=== PATIENT | male | born 1955 | race Caucasian/White ===

== ENCOUNTER → 2019-05-07 09:23 | Outpatient (BNVA) | payer BC, SELFPAY | PROVIDERS: Family Provider Family Medicine; Referring Provider Family Medicine; Visit Provider Specialist | DX: M25.562 Pain in left knee (principal); M17.12 Unilateral primary osteoarthritis, left knee | CPT/HCPCS: 73560; 73565 ==

== ENCOUNTER 2019-05-14 13:26 | Outpatient (CLI) | payer BC, SELFPAY ==
--- NOTE | 2019-05-14 13:45 | MR_ITS ---
WS: [id number] MRI LEFT KNEE NONCONTRAST TECHNIQUE: Axial PD, coronal PD fat sat, coronal PD, sagittal PD, and sagittal PD fat-sat images obta ined. CLINICAL INFORMATION: pain COMPARISON: None. FINDINGS: Distal quadriceps and patella tendons are intact. Normal anterior cruciate ligament. Normal PCL. Smal l amount of prepatellar and infrapatellar soft tissue edema. Blunting of the posterior horn medial meniscus likely due to prior partial meniscectomy. Chronic thin kina of the medial and lateral meniscus. No acute appearing lateral meniscal tears. 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 Medial and lateral collateral lig aments are intact. 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 Normal popliteal fossa. MR/MR knee LT wo con* [id number] IMPRESSION: 1. Anterior and posterior cruciate ligaments are intact. 2. Evidence of prior partial meniscectomy posterior horn medial meniscus. 3. 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 4. 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
== END 2019-05-14 13:27 | disposition home or self-care (01) ==
LOC: RADSHAW 13:30
PROVIDERS: Family Provider Family Medicine; PCP Family Medicine; Visit Provider Specialist
DX: M25.562 Pain in left knee (principal); M22.42 Chondromalacia patellae, left knee
CPT/HCPCS: 73721

== ENCOUNTER 2020-04-08 08:33 | Outpatient (CLI) | payer BC, SELFPAY ==
--- NOTE | 2020-04-08 08:43 | XR_ITS ---
WS: [id number] Left wrist, 3 views, 04/08/2020 Clinical Data: LEFT WRIST PAIN Comparison: None. Findings: No fractures or dislocations are seen. The carpal bones are intact. There is no soft tissue swelling. The distal radius and ulna are not remarkable. XR/XR wrist LT min 3V* [id number] Impression: Negative left wrist.
== END 2020-04-08 08:34 | disposition home or self-care (01) ==
LOC: RAD 08:40
PROVIDERS: Family Provider Family Medicine; PCP Family Medicine; Visit Provider Family Medicine
DX: M25.532 Pain in left wrist (principal)
CPT/HCPCS: 73110

== ENCOUNTER 2021-02-18 12:25 | Emergency (ER) | payer MEDICARE, BC, SELFPAY ==
[2021-02-18 12:39] VITALS: BP 160/91; PULSE 68; RESP 18; TEMP 36.6; O2SAT 95; BMI 33.5
--- NOTE | 2021-02-18 12:48 | XR_ITS ---
WS: [id number] PORTABLE CHEST HISTORY: palpitations COMPARISON: 01/02/2011 Lungs are clear and well expanded. No pleural effusion or pneumothorax. Cardiac size: Normal. Mediastinum/Aorta: Normal mediastinum. No osseous abnormality seen. XR/XR chest 1V portable [id number] IMPRESSION: Unremarkable portable chest.
--- NOTE | 2021-02-18 12:48 | ECG_ITS ---
[facility] Test Date: 2021-02-18 Pat Name: Marcus Kasper Department: Room: Gender: Male Gas Operation Manager: : 1955 Requested By: Cookie Gilbert Order Number: [id number] Reading MD: ROJAS STOREY Measurements Intervals [place] Rate: 68 P: 23 MO: 153 QRS: -64 QRSD: 102 T: 47 QT: 356 QTc: 381 Interpretive Statements SINUS RHYTHM LEFT AXIS DEVIATION [QRS AXIS < -30] POSSIBLE ANTERIOR MYOCARDIAL INFARCTION , OF INDETERMINATE AGE [30 ms Q WAVE IN V3/V4, OR R < 0.2 mV IN V4] No previous ECG available for comparison Electronically Signed On 02-18-2021 14:28:53 CAR PILOT by ROJAS STOREY [id number]
--- NOTE | 2021-02-18 14:27 | ED_ITS ---
HPI - Arrhythmia/Palpitations General: Chief Complaint: Arrhythmia/Palpitations Stated Complaint: HEART SKIPPING BEATS Time Seen by Provider: 02/18/21 14:27 History of Present Illness: HPI narrative: Mr. Kasper is a 65-year-old gentleman with significant history of hemochromatosis who presents to the emergency department due to palpitations. He first noticed intermittent palpitations approximately 1 month ago however they have been increasing in frequency gradually. He notices them more at night and describes it as his heart skipping a beat like 2 or 3 beats followed by long pauses. He denies specific provoking factors. He did have one episode where 3 happened neuro when he felt mildly lightheaded, no syncope associated with this. He has felt his pulse on the positives have been noticeable. Overall the intensity symptoms is moderate at present, there is no associated pain. Course has been increasing in frequency/worsening. He denies heart history, hypertension, hyperlipidemia, tobaccoism, or frequent similar episodes in the past. No other known specific provoking, exacerbating, or alleviating factors identified. Review of Systems General: Reports: 10 or more systems reviewed and unremarkable except in HPI and below PFSH ED PFSH: Family History Father Stroke Denies family history of Diabetes Dementia Cancer Social History Smoking and tobacco status: never smoked Alcohol intake: never Physical Exam Narrative: EXAM NARRATIVE: GENERAL/CONSTITUTIONAL - well-appearing. No acute distress. Eyes - PERRL, no conjunctival injection ENMT - Atraumatic external nose and ears. Moist mucous membranes NECK - supple. trachea midline CARDIOVASCULAR - regular rate and rhythm. Normal peripheral perfusion RESPIRATORY -clear to auscultation bilaterally. No retractions or accessory muscle use. ABDOMEN/GI - Nontender/Nondistended. MSK - Extremities without obvious deformity or tenderness to palpation SKIN - Warm, Dry NEURO - alert and appropriately oriented. Moves all extremities equally. Course ED course: - Patient was seen and evaluated by me at bedside - Patient placed on cardiac monitors, IV access obtained - Initial evaluation notable for no acute distress, nontoxic appearance. Majority of ectopic beats correlating with patient's reported symptoms are supraventricular nature, rare monomorphic PVCs. - Labs notable for elevated hemoglobin likely secondary to hemochromatosis, no significant electrolyte abnormality to explain the patient's symptoms. Delta troponin negative. - Imaging notable for no acute finding on chest x-ray to explain symptoms - Upon serial reexamination after treatment the patient was similar - Based on patient history, evaluation, labs, and imaging as interpreted the most likely cause of the patient's condition is symptomatic ectopic beats - The results of ED evaluation were discussed with the patient including prescriptions and/or symptomatic cares (if applicable) including appropriate and responsible use, followup plan, and return precautions. The patient verbalized understanding and felt safe for discharge. - Patient discharged in satisfactory condition. Vital Signs: Vital signs: Vital Signs Temperature 97.9 F 02/18/21 12:39 Pulse Rate 63 02/18/21 18:13 Respiratory Rate 22 H 02/18/21 17:00 Blood Pressure 148/87 02/18/21 18:13 Pulse Oximetry 99 02/18/21 18:13 MDM - Arrhythmia/Palpitations Medical Records: Attestation: I reviewed the patient's medical records. Lab Data: Attestation: I reviewed the patient's lab results. Labs: Lab Results 02/18/21 02/18/21 02/18/21 15:00 15:00 15:00 WBC 5.6 10^3/uL 10^3/ uL (4.0-10.0) RBC 6.37 10^6/uL H 10 ^6/uL (4.1-5.3) Hgb 19.7 g/dL H g/dL (11.7-16.6) Hct 58.5 % H % (42.0-52.0) MCV 91.8 fl fl (80-94) MCH 30.9 pg pg (28.0-34.0) MCHC 33.7 g/dL g/dL (30.0-36.0) RDW 13.2 % % (12.1-15.1) Plt Count 161 10^3/cmm 10^3 /cmm (130-400) MPV 10.7 fL H fL (7.4-10.4) Neut % (Auto) 60.7 % % Lymph % (Auto) 24.2 % % Jenkins % (Auto) 10.9 % % Eos % (Auto) 2.9 % % Baso % (Auto) 1.1 % % Neut # (Auto) 3.39 10^3/uL 10^3 /uL (1.8-7.7) Lymph # (Auto) 1.4 10^3/uL 10^3/ uL (0.8-4.8) Jenkins # (Auto) 0.6 10^3/uL 10^3/ uL (0.2-0.9) Eos # (Auto) 0.2 10^3/uL 10^3/ uL (0.0-0.8) Baso # (Auto) 0.1 10^3/uL 10^3/ uL (0.0-0.1) Nucleated RBC % (a uto) 0 % % Nucleated RBCs # 0.0 /100WBC /100W BC Sodium 137 mmol/L mmol/L (136-145) Potassium 4.4 mmol/L mmol/L (3.5-5.1) Chloride 101 mmol/L mmol/L (98-107) Carbon Dioxide 24 mmol/L mmol/L (22-29) Anion Gap 16.4 (5-19) BUN 12 mg/dL mg/dL (8-23) Creatinine 0.7 mg/dL mg/dL (0.7-1.2) GFR Calculation 113.2 mL/min mL/m in (90-130) Glucose 168 mg/dL H mg/dL (65-115) Calculated Osmolal ity 288 mOsm/kg mOsm/ kg (285-295) Calcium 6.0 mg/dL L mg/dL (8.5-10.5) Ionized Calcium Me as Magnesium Total Bilirubin 0.6 mg/dL mg/dL (0.15-1.2) AST 11 U/L U/L (0-40) ALT 15 U/L U/L (0-41) Alkaline Phosphata se 33 IU/L L IU/L (40-130) Troponin T Baselin e 8 ng/L ng/L (0-15) Troponin T 120 Min [place] Delta Troponin T Total Protein 7.1 g/dL g/dL (6.6-8.7) Albumin 0.5 g/dL L g/dL (3.5-5.2) Globulin 6.6 g/dL H g/dL (1.3-4.6) TSH 2.05 uIU/mL uIU/m L (0.27-4.20) 02/18/21 02/18/21 02/18/21 15:00 17:11 17:11 WBC RBC Hgb Hct MCV MCH MCHC RDW Plt Count MPV Neut % (Auto) Lymph % (Auto) Jenkins % (Auto) Eos % (Auto) Baso % (Auto) Neut # (Auto) Lymph # (Auto) Jenkins # (Auto) Eos # (Auto) Baso # (Auto) Nucleated RBC % (a uto) Nucleated RBCs # Sodium Potassium Chloride Carbon Dioxide Anion Gap BUN Creatinine GFR Calculation Glucose Calculated Osmolal ity Calcium Ionized Calcium Me as 1.1 mmol/L mmol/L (1.1-1.4) Magnesium 1.9 mg/dL mg/dL (1.7-2.3) Total Bilirubin AST ALT Alkaline Phosphata se Troponin T Baselin e Troponin T 120 Min [place] 9.88 ng/L ng/L (0-15) Delta Troponin T 1.88 ABS# ABS# (0-10) Total Protein Albumin Globulin TSH EKG Data^: EKG 1: Attestation: I personally reviewed and interpreted this EKG as follows: EKG interpretation date: 02/18/21 EKG interpretation time: 12:44 Interpretation: Twelve-lead EKG shows a regular rhythm at a rate of 68. CO interval 153, QRS duration 102, QTc 381. Left axis deviation. Interpretation: Sinus rhythm. Limited interpretation due to baseline artifact Other EKG comments: Chest X-Ray 02/18/21 12:48 IMPRESSION: Unremarkable portable chest. EKG 2: Attestation: I personally reviewed and interpreted this EKG as follows: EKG interpretation date: 02/18/21 EKG interpretation time: 14:45 Interpretation: Twelve-lead EKG shows irregular rhythm at a rate of 65. CO interval 154, QRS duration 102, QTc 362. Left axis deviation. Interpretation: Sinus rhythm. Narrow complex ectopyic beat Other EKG comments: Chest X-Ray 02/18/21 12:48 IMPRESSION: Unremarkable portable chest. Discharge Plan Discharge Patient Disposition: Home Clinical Impression: Palpitations, Ventricular premature beats, PAC (premature atrial contraction) Condition: Stable Prescriptions: New metoprolol tartrate 25 mg tablet 12.5 mg PO BID Qty: 60 RF: 0 No Action tamsulosin [Flomax] 0.4 mg capsule 0.4 mg PO BEDTIME RF: 0 hydrocodone-acetaminophen 5-325 mg tablet 1 tab PO QID PRN (Reason: Pain) RF: 0 testosterone cypionate 200 mg/mL oil 100 mg IM Q7D RF: 0 naproxen 500 mg tablet 500 mg PO DAILY PRN (Reason: Pain) RF: 0 Nexium 20 mg Capsule,Delayed Release(Dr/Ec) 20 mg PO BEDTIME RF: 0 metaxalone 800 mg tablet 800 mg PO PRN RF: 0 Vitamin D3 125 mcg (5,000 unit) Tablet 125 mcg PO DAILY RF: 0 Discharge Orders: Discharge ED (Routine); Ordered 02/18/21 Ordered By: Shawn Mccurdy Referrals: Ever Raymond DO [Primary Care Provider] - Discharge Diet: Usual diet Discharge Activity: Resume usual activity Patient Instructions: Heart Palpitations (ED), Premature Atrial Contractions (E D) Activity Restrictions/Additional Instructions: Thank you for visiting the emergency department. You were seen and evaluated for palpitations. The exact cause of your symptoms is unclear however you were noted to have PACs and PVCs on the monitor, these are common however the cause varies. As discussed, I will order an outpatient echocardiogram and have you follow-up with cardiology. Please return to the emergency department for worsening symptoms or anything else that you are concerned about and feel needs emergency department evaluation. Coding Level of Care Code ED Advance [employer] Delivery System Maintainer for Tina Martinez
--- NOTE | 2021-02-18 14:48 | ECG_ITS ---
[facility] Test Date: 2021-02-18 Pat Name: Marcus Kasper Department: Room: Gender: Male Pharmacy Affairs Assistant: : 1955 Requested By: Cookie Gilbert Order Number: [id number] Reading MD: ROJAS STOREY Measurements Intervals [place] Rate: 65 P: 35 UT: 154 QRS: -27 QRSD: 102 T: 62 QT: 350 QTc: 365 Interpretive Statements SINUS RHYTHM WITH OCCASIONAL SUPRAVENTRICULAR PREMATURE COMPLEXES ANTEROSEPTAL MYOCARDIAL INFARCTION , OF INDETERMINATE AGE [40+ ms Q WAVE IN V1-V4] Compared to ECG 02/18/2021 12:37:47 Left-axis deviation no longer present Myocardial infarct finding still present Electronically Signed On 02-21-2021 13:02:17 ART INSTALLER by ROJAS STOREY [id number]
[2021-02-18 15:02] VITALS: BP 187/103; PULSE 68; RESP 17; O2SAT 100
[2021-02-18 15:14] LABS: Basophils # 0.1 10^3/uL (0.0-0.1); Basophils % 1.1 %; Eosinophils # 0.2 10^3/uL (0.0-0.8); Eosinophils % 2.9 %; Hematocrit 58.5 % (42.0-52.0); Hemoglobin 19.7 g/dL (11.7-16.6); Lymphocytes # 1.4 10^3/uL (0.8-4.8); Lymphocytes % 24.2 %; Mean Corpuscular HGB Conc 33.7 g/dL (30.0-36.0); Mean Corpuscular Hemoglobin 30.9 pg (28.0-34.0); Mean Corpuscular Volume 91.8 fl (80-94); Mean Platelet Volume 10.7 fL (7.4-10.4); Monocytes # 0.6 10^3/uL (0.2-0.9); Monocytes % 10.9 %; Neutrophils # 3.39 10^3/uL (1.8-7.7); Neutrophils % 60.7 %; Nucleated Red Blood Cells % 0 %; Platelet Count 161 10^3/cmm (130-400); Red Blood Count 6.37 10^6/uL (4.1-5.3); Red Cell Distribution Width 13.2 % (12.1-15.1); White Blood Count 5.6 10^3/uL (4.0-10.0)
[2021-02-18] MEDS: sodium chloride 0.9% 500 ML 999 ML IV (15:30)
[2021-02-18 16:02] LABS: Magnesium 1.9 mg/dL (1.7-2.3)
[2021-02-18 16:08] VITALS: BP 155/90; PULSE 65; RESP 18; O2SAT 96
[2021-02-18 16:13] LABS: Alanine Aminotransferase 15 U/L (0-41); Albumin Level 0.5 g/dL (3.5-5.2); Alkaline Phosphatase 33 IU/L (40-130); Aspartate Amino Transferase 11 U/L (0-40); Blood Urea Nitrogen 12 mg/dL (8-23); Carbon Dioxide 24 mmol/L (22-29); Chloride 101 mmol/L (98-107); Globulin 6.6 g/dL (1.3-4.6); Glomerular Filtration Rate 113.2 mL/min (90-130); Glucose 168 mg/dL (65-115); Osmolality Calculated 288 mOsm/kg (285-295); Sodium 137 mmol/L (136-145); Thyroid Stimulating Hormone 2.05 uIU/mL (0.27-4.20); Total Bilirubin 0.6 mg/dL (0.15-1.2); Total Protein 7.1 g/dL (6.6-8.7)
[2021-02-18 16:18] LABS: Anion Gap 16.4 (5-19); Potassium 4.4 mmol/L (3.5-5.1)
[2021-02-18 16:33] LABS: Troponin(5th) Baseline 8 ng/L (0-15)
--- NOTE | 2021-02-18 16:50 | PC.NURSE ---
PATIENT FAMILY MEMBER UPSET THAT THEY HAVEN'T BEEN GIVEN ANY INFORMATION. NURSE EXPLAINED CURRENT PROTOCOL FOR CHEST PAIN OR HEART RELATED ISSUES. PATIENT INFORMED THAT THERE WOULD BE A 2 HOUR LAB DRAWN AND DECISIONS WOULD BE MADE FROM THERE. PATIENT STATED THEY HAD BEEN HERE FOR 4 HOURS. NURSE INFORMED PATIENT THAT WHILE THEY HAD BEEN IN THE ED FOR 4 HOURS, THEY HAD ONLY BEEN IN A ROOM FOR APPROXIMATELY 2 HOURS. PATIENT VERBALIZED UNDERSTANDING. NO FURTHER NEEDS AT THIS TIME.
[2021-02-18 17:00] VITALS: BP 164/97; PULSE 66; RESP 22; O2SAT 99
[2021-02-18 17:47] LABS: Ionized Calcium 1.1 mmol/L (1.1-1.4)
[2021-02-18 17:54] LABS: Troponin 5 2HR 9.88 ng/L (0-15); Troponin 5 2HR Delta 1.88 ABS# (0-10)
[2021-02-18 18:13] VITALS: BP 148/87; PULSE 63; O2SAT 99
--- NOTE | 2021-02-22 15:46 | DCPLANNER ---
international bank manager had message to schedule a follow up appointment for patient with [facility], and an outpatient echo cardiogram. international bank manager called [facility], spoke with Svetlana, gave clinic patients information. A follow up appointment was scheduled for Monday, March 08, 2021 at 1:[address] Power. international bank manager called and gave patients the appointment information. international bank manager faxed signed order to centralized scheduling for an outpatient echo cardiogram. Centralized scheduling will call patient with appointment information.
--- NOTE | 2021-03-18 08:34 | DCPLANNER ---
Addendum entered by Mague Irwin 04/29/21 11:20: Patient had a follow up appointment scheduled with [facility] - patient did attend appointment. Patient had an outpatient echo scheduled - patient did not attend appointment. Original Note: Patient has an out patient echo scheduled for Sunday, April 25, 2021 at 1:30. Patient has been placed on a cancellation list.
== END 2021-02-18 18:14 | disposition home or self-care (01) ==
PROVIDERS: Physician Assistant; Emergency Provider Emergency Medicine; PCP Family Medicine
DX: R00.2 Palpitations (principal); I49.3 Ventricular premature depolarization; I49.1 Atrial premature depolarization; Z79.891 Long term (current) use of opiate analgesic
CPT/HCPCS: 71045; 80053; 82330; 83735; 84443; 84484; 85025; 93005; 99284; J7040

== ENCOUNTER → 2021-08-03 09:47 | Outpatient (BNVA) | payer MEDICARE, SELFPAY | PROVIDERS: PCP Family Medicine; Visit Provider Internal Medicine Cardiovascular Disease | DX: R00.2 Palpitations (principal); Z87.891 Personal history of nicotine dependence; R00.1 Bradycardia, unspecified; R00.0 Tachycardia, unspecified | CPT/HCPCS: 93225; 99213 ==

== ENCOUNTER → 2021-12-23 11:05 | Outpatient (BNVA) | payer MEDICARE, SELFPAY | PROVIDERS: PCP Family Medicine; Visit Provider Internal Medicine Cardiovascular Disease | DX: R00.2 Palpitations (principal); Z87.891 Personal history of nicotine dependence | CPT/HCPCS: 99213 ==

== ENCOUNTER → 2022-03-14 15:14 | Outpatient (BNVA) | payer MEDICARE, SELFPAY | PROVIDERS: PCP Family Medicine; Visit Provider Clinical Nurse Specialist Adult Health | DX: R10.32 Left lower quadrant pain (principal); E83.110 Hereditary hemochromatosis | CPT/HCPCS: 80053; 81000; 82728; 83540; 85025; 87086 ==

== ENCOUNTER → 2022-03-15 13:25 | Outpatient (BNVA) | payer MEDICARE, SELFPAY | PROVIDERS: PCP Family Medicine; Visit Provider Clinical Nurse Specialist Adult Health | DX: R10.32 Left lower quadrant pain (principal); E83.110 Hereditary hemochromatosis; R73.09 Other abnormal glucose; E11.9 Type 2 diabetes mellitus without complications | CPT/HCPCS: 83036 ==

== ENCOUNTER → 2022-04-07 10:50 | Outpatient (BNVA) | payer MEDICARE, SELFPAY | PROVIDERS: PCP Family Medicine; Visit Provider Family Medicine | DX: R10.32 Left lower quadrant pain (principal); Z79.899 Other long term (current) drug therapy | CPT/HCPCS: 85610 ==

== ENCOUNTER → 2022-08-28 11:50 | Outpatient (BNVA) | payer MEDICARE, SELFPAY | PROVIDERS: PCP Family Medicine; Visit Provider Family Medicine | DX: N40.0 Benign prostatic hyperplasia without lower urinary tract symptoms (principal); Z01.810 Encounter for preprocedural cardiovascular examination; R73.09 Other abnormal glucose; M19.90 Unspecified osteoarthritis, unspecified site; E83.119 Hemochromatosis, unspecified; K21.9 Gastro-esophageal reflux disease without esophagitis; Z13.6 Encounter for screening for cardiovascular disorders; R79.89 Other specified abnormal findings of blood chemistry | CPT/HCPCS: 80053; 80061; 82040; 82728; 83036; 83540; 84270; 84403; 85025 ==

== ENCOUNTER → 2022-09-04 10:57 | Outpatient (BNVA) | payer MEDICARE, SELFPAY | PROVIDERS: PCP Family Medicine; Visit Provider Family Medicine | DX: Z00.00 Encounter for general adult medical examination without abnormal findings (principal); E34.9 Endocrine disorder, unspecified; K21.9 Gastro-esophageal reflux disease without esophagitis; E83.119 Hemochromatosis, unspecified; M19.90 Unspecified osteoarthritis, unspecified site; R73.09 Other abnormal glucose | CPT/HCPCS: 82728; 83540 ==

== ENCOUNTER → 2022-09-19 09:05 | Day surgery (SDC) | payer MEDICARE, SELFPAY ==
[2022-09-19 09:30] VITALS: BP 143/83; PULSE 58; RESP 18; TEMP 36.4; O2SAT 96
[2022-09-19 09:36] LABS: Basophils # 0.1 10^3/uL (0.0-0.1); Basophils % 1.2 %; Eosinophils # 0.1 10^3/uL (0.0-0.8); Eosinophils % 3.1 %; Hematocrit 52.8 % (42.0-52.0); Hemoglobin 17.9 g/dL (11.7-16.6); Lymphocytes % 23.1 %; Mean Corpuscular HGB Conc 33.9 g/dL (30.0-36.0); Mean Corpuscular Hemoglobin 30.9 pg (28.0-34.0); Mean Corpuscular Volume 91.2 fl (80-94); Mean Platelet Volume 10.3 fL (7.4-10.4); Monocytes # 0.4 10^3/uL (0.2-0.9); Monocytes % 9.4 %; Neutrophils # 2.62 10^3/uL (1.8-7.7); Nucleated Red Blood Cells % 0 %; Platelet Count 134 10^3/cmm (130-400); Red Blood Count 5.79 10^6/uL (4.1-5.3); Red Cell Distribution Width 12.9 % (12.1-15.1); White Blood Count 4.2 10^3/uL (4.0-10.0)
== END ==
PROVIDERS: PCP Family Medicine; Visit Provider Family Medicine
DX: E83.119 Hemochromatosis, unspecified (principal); Z79.899 Other long term (current) drug therapy
CPT/HCPCS: 36415; 85025; 99195

== ENCOUNTER → 2022-09-25 09:12 | Day surgery (SDC) | payer MEDICARE, SELFPAY ==
[2022-09-25 09:34] VITALS: BP 127/75; PULSE 62; RESP 18; TEMP 36.4; O2SAT 96
[2022-09-25 09:42] LABS: Basophils # 0.1 10^3/uL (0.0-0.1); Basophils % 1.1 %; Eosinophils # 0.1 10^3/uL (0.0-0.8); Eosinophils % 2.7 %; Hematocrit 50.2 % (42.0-52.0); Lymphocytes # 1.1 10^3/uL (0.8-4.8); Lymphocytes % 23.2 %; Mean Corpuscular HGB Conc 33.9 g/dL (30.0-36.0); Mean Corpuscular Hemoglobin 30.6 pg (28.0-34.0); Mean Corpuscular Volume 90.5 fl (80-94); Mean Platelet Volume 10.6 fL (7.4-10.4); Monocytes # 0.4 10^3/uL (0.2-0.9); Monocytes % 8.6 %; Neutrophils # 3.04 10^3/uL (1.8-7.7); Neutrophils % 64.2 %; Nucleated Red Blood Cells % 0 %; Platelet Count 144 10^3/cmm (130-400); Red Blood Count 5.55 10^6/uL (4.1-5.3); White Blood Count 4.7 10^3/uL (4.0-10.0)
--- NOTE | 2022-09-25 10:00 | PC.NURSE ---
Pt referral to GI infusions for Therapeutic Phlebotomy from Dr. Raymond. Pt Hg 17 and Hct 50.2. Phlebotomy drawn as ordered. Pt tolerated well. No reaction noted.
== END ==
PROVIDERS: PCP Family Medicine; Visit Provider Family Medicine
DX: E83.119 Hemochromatosis, unspecified (principal); Z79.899 Other long term (current) drug therapy
CPT/HCPCS: 36415; 85025; 99195

== ENCOUNTER → 2022-10-02 09:35 | Day surgery (SDC) | payer MEDICARE, SELFPAY ==
[2022-10-02 09:52] VITALS: BP 124/65; PULSE 70; RESP 18; TEMP 36.6; O2SAT 94
[2022-10-02 09:56] LABS: Basophils % 0.9 %; Eosinophils # 0.1 10^3/uL (0.0-0.8); Eosinophils % 2.4 %; Hematocrit 49.3 % (42.0-52.0); Hemoglobin 16.6 g/dL (11.7-16.6); Lymphocytes # 1.1 10^3/uL (0.8-4.8); Lymphocytes % 23.2 %; Mean Corpuscular HGB Conc 33.7 g/dL (30.0-36.0); Mean Corpuscular Hemoglobin 30.5 pg (28.0-34.0); Mean Corpuscular Volume 90.6 fl (80-94); Mean Platelet Volume 10.6 fL (7.4-10.4); Monocytes # 0.5 10^3/uL (0.2-0.9); Monocytes % 10.1 %; Neutrophils # 2.88 10^3/uL (1.8-7.7); Neutrophils % 63.2 %; Nucleated Red Blood Cells % 0 %; Platelet Count 148 10^3/cmm (130-400); Red Blood Count 5.44 10^6/uL (4.1-5.3); White Blood Count 4.6 10^3/uL (4.0-10.0)
--- NOTE | 2022-10-02 10:27 | PC.NURSE ---
Pt to GI infusions for Therapeutic phlebotomy. Hg 16.6 and Hct 49.3 today. Plebotomy drawn as ordered. Pt tolerated well.
== END ==
PROVIDERS: PCP Family Medicine; Visit Provider Family Medicine
DX: E83.119 Hemochromatosis, unspecified (principal); Z79.899 Other long term (current) drug therapy
CPT/HCPCS: 36415; 85025; 99195

== ENCOUNTER → 2022-10-09 09:19 | Day surgery (SDC) | payer MEDICARE, SELFPAY ==
[2022-10-09 09:25] VITALS: BP 135/86; PULSE 59; RESP 18; TEMP 36.6; O2SAT 97; BMI 30.4
[2022-10-09 09:35] LABS: Eosinophils # 0.2 10^3/uL (0.0-0.8); Hematocrit 47.4 % (42.0-52.0); Hemoglobin 15.8 g/dL (11.7-16.6); Lymphocytes # 1.1 10^3/uL (0.8-4.8); Lymphocytes % 27.6 %; Mean Corpuscular HGB Conc 33.3 g/dL (30.0-36.0); Mean Corpuscular Hemoglobin 30.6 pg (28.0-34.0); Mean Corpuscular Volume 91.7 fl (80-94); Mean Platelet Volume 10.5 fL (7.4-10.4); Monocytes # 0.4 10^3/uL (0.2-0.9); Monocytes % 10.4 %; Neutrophils # 2.28 10^3/uL (1.8-7.7); Neutrophils % 56.8 %; Nucleated Red Blood Cells % 0 %; Platelet Count 140 10^3/cmm (130-400); Red Blood Count 5.17 10^6/uL (4.1-5.3); Red Cell Distribution Width 13.6 % (12.1-15.1)
== END ==
PROVIDERS: PCP Family Medicine; Visit Provider Family Medicine
DX: E83.119 Hemochromatosis, unspecified (principal); Z79.899 Other long term (current) drug therapy
CPT/HCPCS: 36415; 85025; 99195

== ENCOUNTER → 2022-12-07 09:55 | Outpatient (BNVA) | payer MEDICARE, SELFPAY | PROVIDERS: PCP Family Medicine; Visit Provider Family Medicine | DX: E83.119 Hemochromatosis, unspecified (principal) | CPT/HCPCS: 82728; 83540 ==

== ENCOUNTER 2023-07-09 09:11 | Outpatient (CLI) | payer MEDICARE, SELFPAY ==
--- NOTE | 2023-07-09 09:30 | MR_ITS ---
WS: [id number] MRI SACRUM WITHOUT CONTRAST. COMPARISON: None Multiplanar, multisequence imaging is performed without contrast. Normal cervical alignment. No marrow edema or fracture. No destructive osseous process. No erosions o r widening of the SI joints. Very small erosions are noted along the iliac side of the SI joints. No active marrow edema along the SI joints. Sacral foramina are widely patent. No perirectal soft tissue mass. No adenopathy or fluid collections. Degenerative disc disease at L4-5 and L5-S1. Disc and osteophyte encroachment upon the ventral thecal sac and the foramina. Mild to moderate bilateral foraminal stenosis at L4-5 and L5-S1, greatest on t he RIGHT. IMPRESSION: 1. No sacral fracture or marrow edema. 2. Bilateral L4-5 and L5-S1 foraminal stenosis due to disc and osteophyte disease, greater on the RI GHT. 3. Very small erosions involving the SI joints.
== END 2023-07-09 09:12 | disposition home or self-care (01) ==
LOC: RAD 09:13
PROVIDERS: PCP Family Medicine; Visit Provider Family Medicine
DX: M62.89 Other specified disorders of muscle (principal); M54.30 Sciatica, unspecified side; M48.07 Spinal stenosis, lumbosacral region
CPT/HCPCS: 72148

== ENCOUNTER → 2024-09-11 14:43 | Outpatient (BNVA) | payer MEDICARE, SELFPAY | PROVIDERS: PCP Family Medicine; Visit Provider Family Medicine | DX: E34.9 Endocrine disorder, unspecified (principal); N40.0 Benign prostatic hyperplasia without lower urinary tract symptoms; M19.90 Unspecified osteoarthritis, unspecified site; M54.30 Sciatica, unspecified side; E83.119 Hemochromatosis, unspecified; R79.89 Other specified abnormal findings of blood chemistry | CPT/HCPCS: 80053; 80061; 82040; 82306; 82728; 83540; 84270; 84403; 85025 ==